=== PATIENT | male | born 2000 | race Asian ===

== ENCOUNTER 2019-06-02 00:45 | Emergency (ER) | payer OTHER, SELFPAY ==
[2019-06-02 01:04] VITALS: BP 133/62; PULSE 61; RESP 16; TEMP 36.8; O2SAT 99
--- NOTE | 2019-06-02 01:53 | PC.NURSE ---
Pt to ED for possible eye injury. States hitting eye with a tree brANJ
--- NOTE | 2019-06-02 01:54 | PC.NURSE ---
pT TO ER for possible eye injury. States hitting eye with broken tree branch. NAd. Eye exam neg. Will continue to monitor.
--- NOTE | 2019-06-02 01:55 | ED.EYEPROB ---
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 He injured his left eye while pulling wood in to a campfire. He poked his left eye with a stick. He has an abrasion with swelling below left thigh. He has pain in the eyeball with blurred vision. There is no bleeding or discharge from the eye. There is no obvious foreign body in the eye. Right eye is unaffected. There are no other injuries. Related Data Allergies Allergy/AdvReac Type Severity Reaction Status Date / Time No Known Drug Allergies Allergy Verified 06/02/19 01:07 Review of Systems Review of Systems ROS Unobtainable: All systems reviewed & are unremarkable except as noted in HPI and below Constitutional Denies headache(s), Denies lethargy and Denies malaise Eyes Reports blurry vision, Denies diplopia, Denies eye discharge and Reports eye pain ENT Ears, Nose, Mouth, and Throat: Denies headache(s) Neurologic Denies headache(s) [facility] Medical History (Updated 06/02/19 @ 02:35 by Pablo Kilpatrick MD) No active medical problems (Acute) Surgical History (Updated 06/02/19 @ 02:18 by Pablo Kilpatrick MD) No pertinent past surgical history (Acute) Social History Smoking Status: Never smoker Social History Smoking Status: Never smoker Exam Initial Vital Signs Initial Vital Signs: Vital Signs Temperature 98.2 F 06/02/19 01:04 Pulse Rate 61 06/02/19 01:04 Respiratory Rate 16 06/02/19 01:04 Blood Pressure 133/62 06/02/19 01:04 Pulse Oximetry 99 06/02/19 01:04 Const General: cooperative and well developed Nutritional Appearance: well nourished Orientation: alert, awake, oriented x3 and not confused [facility] Head: normocephalic and atraumatic Eyes General: appearance normal, both eyes and all related structures Pupils: PERRL EOM: EOM intact bilaterally Other: There is an abrasion with edema below the left lid. There is injection to the left eye. Fluorescein exam was done. There is an abrasion centrally over the the cornea. There are no penetrating injuries, there are no foreign bodies. The anterior chamber is clear. Psych Appearance: well kempt Mental Status: mental status grossly normal Attitude: cooperative Thought Content: normal and suicidality Judgment: judgment good Course Course Narrative: The patient was started on gentamicin drops while here in the ER. He will be discharged the same packings medications for ongoing care. Orders Ordered: Discontinued Medications Gentamicin Sulfate (Garamycin 0.3% Ophth Prepack) 1 bottle [facility] [place] SEEINSTR ONE Stop: 06/02/19 02:13 Vital Signs - 8 hr 06/02/19 01:04 Temperature 98.2 F Pulse Rate 61 Respiratory Rate 16 Blood Pressure 133/62 Pulse Oximetry 99 Discharge Plan Departure Patient Disposition: Home Clinical Impression: Corneal abrasion Qualifiers: Encounter type: initial encounter Laterality: left Qualified Code(s): S05.02XA - Injury of conjunctiva and corneal abrasion without foreign body, left eye, initial encounter Instructions: Corneal Abrasion Activity Restrictions/Additional Instructions: Gentamicin eyedrops, 1 drop into the left eye every 4 hr while awake for 1 week. Tylenol as needed for pain. Use sunglasses and a hat when outside, avoid a lot of direct light on the eye. Return here as necessary.
--- NOTE | 2019-06-02 02:03 | PC.NURSE ---
MD at bedside for eye exam.
--- NOTE | 2019-06-02 02:15 | ED_ITS ---
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 He injured his left eye while pulling wood in to a campfire. He poked his left eye with a stick. He has an abrasion with swelling below left thigh. He has pain in the eyeball with blurred vision. There is no bleeding or discharge from the eye. There is no obvious foreign body in the eye. Right eye is unaffected. There are no other injuries. Related Data Allergies Allergy/AdvReac Type Severity Reaction Status Date / Time No Known Drug Allergies Allergy Verified 06/02/19 01:07 Review of Systems Review of Systems ROS Unobtainable: All systems reviewed & are unremarkable except as noted in HPI and below Constitutional Denies headache(s), Denies lethargy and Denies malaise Eyes Reports blurry vision, Denies diplopia, Denies eye discharge and Reports eye pain ENT Ears, Nose, Mouth, and Throat: Denies headache(s) Neurologic Denies headache(s) [facility] Medical History (Updated 06/02/19 @ 02:35 by Pablo Kilpatrick MD) No active medical problems (Acute) Surgical History (Updated 06/02/19 @ 02:18 by Pablo Kilpatrick MD) No pertinent past surgical history (Acute) Social History Smoking Status: Never smoker Social History Smoking Status: Never smoker Exam Initial Vital Signs Initial Vital Signs: Vital Signs Temperature 98.2 F 06/02/19 01:04 Pulse Rate 61 06/02/19 01:04 Respiratory Rate 16 06/02/19 01:04 Blood Pressure 133/62 06/02/19 01:04 Pulse Oximetry 99 06/02/19 01:04 Const General: cooperative and well developed Nutritional Appearance: well nourished Orientation: alert, awake, oriented x3 and not confused [facility] Head: normocephalic and atraumatic Eyes General: appearance normal, both eyes and all related structures Pupils: PERRL EOM: EOM intact bilaterally Other: There is an abrasion with edema below the left lid. There is injection to the left eye. Fluorescein exam was done. There is an abrasion centrally over the the cornea. There are no penetrating injuries, there are no foreign bodies. The anterior chamber is clear. Psych Appearance: well kempt Mental Status: mental status grossly normal Attitude: cooperative Thought Content: normal and suicidality Judgment: judgment good Course Course Narrative: The patient was started on gentamicin drops while here in the ER. He will be discharged the same packings medications for ongoing care. Orders Ordered: Discontinued Medications Gentamicin Sulfate (Garamycin 0.3% Ophth Prepack) 1 bottle [facility] [place] Stop: 06/02/19 02:13 Vital Signs - 8 hr 06/02/19 01:04 Temperature 98.2 F Pulse Rate 61 Respiratory Rate 16 Blood Pressure 133/62 Pulse Oximetry 99 Discharge Plan Departure Patient Disposition: Home Clinical Impression: Corneal abrasion Qualifiers: Encounter type: initial encounter Laterality: left Qualified Code(s): S05.02XA - Injury of conjunctiva and corneal abrasion without foreign body, left eye, initial encounter Instructions: Corneal Abrasion Activity Restrictions/Additional Instructions: Gentamicin eyedrops, 1 drop into the left eye every 4 hr while awake for 1 week. Tylenol as needed for pain. Use sunglasses and a hat when outside, avoid a lot of direct light on the eye. Return here as necessary.
[2019-06-02 02:36] VITALS: BP 148/80; PULSE 55; RESP 12; O2SAT 99
[2019-06-02] MEDS: GENTAMICIN 0.3% OPHTH PREPACK 1 BOTTLE MISC (02:37)
== END 2019-06-02 02:43 | disposition home or self-care (01) ==
PROVIDERS: Emergency Provider Emergency Medicine
DX: S05.02XA Injury of conjunctiva and corneal abrasion without foreign body, left eye, initial encounter (principal); W22.8XXA Striking against or struck by other objects, initial encounter; Y99.0 Civilian activity done for income or pay
CPT/HCPCS: 99283